=== PATIENT | female | born 1990 | race American Indian/Alaskan Native ===

== ENCOUNTER 2019-05-01 15:39 | Outpatient (CLI) | payer MEDICAID ==
--- NOTE | 2019-05-01 16:31 | Ultrasound Report ---
LEFT COMPLETE BREAST ULTRASOUND HISTORY: 29-year-old patient presents for evaluation of a palpable lump in the left breast and new le ft nipple discharge. She reports a milky and brownish discharge after starting a new control pi ll. She also stated that the palpable lump has been present for 10 years. COMPARISON: None. FINDINGS: Ultrasound of all 4 quadrants and the subareolar portion of the left breast was performed. A superficial oval solid hypoechoic shadowing mass at 11:00 3 cm from the nipple correlates with the palpable lump. It measures 2.5 x 1.9 x 1.3 cm. An adjacent oval solid heterogeneous hypoechoic mass m easures 8 x 8 x 4 mm. No other mass or suspicious finding in the left breast. Moderate retroareolar d uct ectasia with no intraductal mass. IMPRESSION: 1. Probably benign 2.5 cm and 0.8 cm breast masses at 11:00 3 cm from the nipple. Recommend 6 month f ollow-up left breast ultrasound to reevaluate the size of the masses. 2. Mild benign duct ectasia. BIRADS 3: Probably benign. Signer Name: Armond Arredondo MD Signed: 05/01/2019 4:27 PM Workstation Name: [id number]
== END 2019-05-01 15:40 | disposition home or self-care (01) ==
LOC: SPVWC 15:39
DX: N63.12 Unspecified lump in the right breast, upper inner quadrant (principal)

== ENCOUNTER 2020-06-25 14:12 | Outpatient (CLI) | payer MEDICAID ==
--- NOTE | 2020-06-25 16:42 | Ultrasound Report ---
ULTRASOUND BREAST BILATERAL COMPLETE, 06/25/2020 CLINICAL INFORMATION / INDICATION: BILATERAL BREAST DISCHARGE AND LEFT BREAST MASS. TECHNIQUE: Complete sonographic evaluation of all 4 quadrants and retroareolar region was performed. COMPARISON: Left breast ultrasound 08/16/2014 and 05/01/2019. FINDINGS: RIGHT: There is a benign lymph node at the 9:00 position 11 cm from the nipple measuring 3.9 mm short axis. There is a circumscribed ovoid hypoechoic solid nodule at the 2:30 position 9 cm from the nipp le. The longest axis parallels the skin and measures 1.2 cm. There is diffuse posterior shadowing pre sent. No internal vascularity is present on Doppler exam. There is mild benign-appearing ductal ectas ia in the right subareolar region. LEFT: There is a circumscribed ovoid hypoechoic solid nodule at the 12:00 position 3 cm from the nipp le at the site of the palpable abnormality. The longest axis parallels the skin and measures 2.6 cm. The lesion demonstrates diffuse posterior shadowing. No internal vascularity is seen on Doppler exam. The lesion was present on the 2014 study at which time it measured 3.1 cm in greatest dimension. No other abnormality is seen in the left breast. IMPRESSION: 1. 2.6 cm benign-appearing solid mass in the left superior breast at the site of the palpable abnorma lity is slightly smaller than on the 2015 study. 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 No routine follow-up is recommended. 2. 1.2 cm solid nodule in the right breast at the 2:30 position is probably benign and also likely re presents a fibroadenoma in a patient in this age group. Since no prior right breast ultrasound studie s are available, a follow-up right breast ultrasound in 6 months may be helpful in documenting stabil ity. Follow up recommendation: Ultrasound BI-RADS Category 3: Probably Benign. Followup in 6 months. A normal or "negative" report should not preclude biopsy or follow-up of a clinically suspicious find ing. Signer Name: Mauricio Santiago MD Signed: 06/25/2020 4:37 PM Workstation Name: [email or web address]
== END 2020-06-25 14:13 | disposition home or self-care (01) ==
LOC: SPVWC 14:12
PROVIDERS: ATTEND Student in an Organized Health Care Education/Training Program
DX: N63.12 Unspecified lump in the right breast, upper inner quadrant (principal); N60.41 Mammary duct ectasia of right breast; N63.21 Unspecified lump in the left breast, upper outer quadrant; R92.8 Other abnormal and inconclusive findings on diagnostic imaging of breast